=== PATIENT | female | born 1960 ===

== ENCOUNTER 2024-06-06 08:30 | Inpatient (IN) | payer OTHER ==
[~2024-06-06] VITALS: Ht 165.1 cm; Wt 102.1 kg
[~2024-06-06 08:30] MED LIST: ATORVASTATIN CA10 MG PO; CHILDREN'S ASPI81 MG PO; COZAAR25 MG PO; DOXYCYCLINE HY100 MG PO; IBU600 MG PO; METFORMIN HCL500 M3 PO
[2024-06-06 11:07] LABS: HEMOGLOBIN 13.9 g/dL (12.0-15.00); MEAN CELL VOLUME 82.1 fL (80.00-100.00); MEAN CORPUSCULAR HEMOGLOBIN 29.3 pg (27.00-32.0); MEAN CORPUSCULAR HGB CONC 35.7 g/dl (32.0-36.0); PLATELET COUNT 285 K/uL (150-450); RED BLOOD COUNT 4.75 M/uL (4.00-6.00); RED CELL DISTRIBUTION WIDTH 12.9 % (11.5-14.5)
[2024-06-06 11:08] LABS: URINE APPEARANCE Clear; URINE BILIRRUBIN Negative (NEGATIVE); URINE BLOOD Negative; URINE COLOR Yellow; URINE GLUCOSE Negative (NEGATIVE); URINE KETONE Negative (NEGATIVE); URINE LEUKOCYTE Negative; URINE NITRATE Negative; URINE PROTEIN Negative (NEGATIVE); URINE UROBILINOGEN 0.2 E.U./dl
[2024-06-06 11:12] LABS: URINE EPITHELIAL CELLS 14.5 uL (0.0-38.8); URINE RBC 3.3 uL (0.0-20.8); URINE WBC 12.8 uL (0.0-23.2)
[2024-06-06 11:36] LABS: INR 0.96; PARTIAL THROMBOPLASTIN TIME 20.2 SECONDS (22.0-34.0); PROTHROMBIN TIME 10.5 SECONDS (9.0-11.5)
[2024-06-06 11:41] LABS: ALBUMIN 3.9 gm/dL (3.4-5.0); BILIRUBIN TOTAL 0.5 mg/dL (0.3-1.2); CALCIUM 9.7 mg/dL (8.5-10.1); CREATININE SERUM 0.68 mg/dL (0.55-1.02); GFR 87.67; GLOBULINA 3.7 G/DL (2.4-3.5); POTASSIUM 4.68 mEq/L (3.5-5.1); TOTAL PROTEIN 7.6 gm/dL (6.4-8.2)
[2024-06-06 11:52] VITALS: BP 170/89
[2024-06-13] MEDS ORDERED: CEFOXITIN SODIUM 2,000 MG VIAL IV ONE (13:43)
[2024-06-13] MEDS ORDERED: POVIDONE-IODINE 118 ML BOTT TOP ONE (16:02)
[2024-06-13] MEDS ORDERED: METRONIDAZOLE/SODIUM CHLORIDE 500 MG/100 ML PIGGYBACK IV ONE (16:10)
[2024-06-13] MEDS ORDERED: MEPERIDINE HCL/PF 50 MG/ML VIAL IM PRN (19:15)
[2024-06-13] MEDS ORDERED: KETOROLAC TROMETHAMINE 30 MG VIAL IV PRN (19:15)
[2024-06-13] MEDS ORDERED: SUGAMMADEX SODIUM 200 MG/2 ML VIAL IV ONE (19:15)
[2024-06-13] MEDS ORDERED: RINGERS SOLUTION,LACTATED 1,000 ML IV SCH (19:15)
[2024-06-13] MEDS ORDERED: PROMETHAZINE HCL 50 MG/ML AMPUL IM PRN (19:15)
[2024-06-13] MEDS ORDERED: SIMETHICONE 125 MG CAPSULE PO SCH (21:00)
[2024-06-13] MEDS ORDERED: ENALAPRILAT DIHYDRATE 1.25 MG/ML VIAL IV ONE (21:19)
[2024-06-13] MEDS ORDERED: ENALAPRILAT DIHYDRATE 1.25 MG/ML VIAL IV PRN (21:45)
[2024-06-14 04:17] VITALS: BP 161/68
[2024-06-14 04:35] LABS: HEMATOCRIT 38.1 % (36.0-45.00); HEMOGLOBIN 12.9 g/dL (12.0-15.00); MEAN CELL VOLUME 83.3 fL (80.00-100.00); MEAN CORPUSCULAR HEMOGLOBIN 28.1 pg (27.00-32.0); MEAN CORPUSCULAR HGB CONC 33.7 g/dl (32.0-36.0); PLATELET COUNT 307 K/uL (150-450); RED BLOOD COUNT 4.58 M/uL (4.00-6.00)
[2024-06-14 08:00] VITALS: BP 138/78
[2024-06-14] MEDS ORDERED: MetFORMIN HCL 500 MG TABLET PO SCH (09:06)
[2024-06-14] MEDS ORDERED: FAMOtidine 20 MG TABLET PO SCH (09:10)
[2024-06-14] MEDS ORDERED: ACETAMINOPHEN-1 EAC2 PO (09:15)
[2024-06-14] MEDS ORDERED: NAPROXEN 500 MG TABLET PO PRN (09:15)
[2024-06-14] MEDS ORDERED: ACETAMINOPHEN WITH CODEINE 1 UDTAB TABLET PO PRN (09:15)
[2024-06-14] MEDS ORDERED: NAPR500T14 PO (09:16)
[2024-06-14] MEDS ORDERED: FAMOTIDINE20 MG PO (09:16)
[2024-06-14] MEDS ORDERED: COZAAR50 MG PO (09:16)
[2024-06-14] MEDS ORDERED: LOSARTAN POTASSIUM 50 MG TABLET PO SCH (12:00)
== END 2024-06-14 11:12 | disposition home or self-care (01) | DRG 743 ==
LOC: O/R 06-13 06:56 → SURH 06-13 08:30 → OB/GYN 06-13 19:54
PROVIDERS: ADMIT Obstetrics & Gynecology; ATTEND Obstetrics & Gynecology
PROC: 0UT7FZZ Resection of Bilateral Fallopian Tubes, Via Natural or Artificial Opening With Percutaneous Endoscopic Assistance (ICD-10-PCS; 2024-06-13)
PROC: 0UT2FZZ Resection of Bilateral Ovaries, Via Natural or Artificial Opening With Percutaneous Endoscopic Assistance (ICD-10-PCS; 2024-06-13)
PROC: 0JQC0ZZ Repair Pelvic Region Subcutaneous Tissue and Fascia, Open Approach (ICD-10-PCS; 2024-06-13)
PROC: 0USG4ZZ Reposition Vagina, Percutaneous Endoscopic Approach (ICD-10-PCS; 2024-06-13)
PROC: 0TJB8ZZ Inspection of Bladder, Via Natural or Artificial Opening Endoscopic (ICD-10-PCS; 2024-06-13)
PROC: 0UT9FZZ Resection of Uterus, Via Natural or Artificial Opening With Percutaneous Endoscopic Assistance (ICD-10-PCS; principal; 2024-06-13 10:30)
DX: D25.2 Subserosal leiomyoma of uterus (principal); D25.1 Intramural leiomyoma of uterus; N80.03 Adenomyosis of the uterus; D27.0 Benign neoplasm of right ovary; Z20.822 Contact with and (suspected) exposure to COVID-19; N95.0 Postmenopausal bleeding; R10.2 Pelvic and perineal pain; N81.11 Cystocele, midline